=== PATIENT | male | born 1965 | race African-American/Black ===

== ENCOUNTER 2016-07-09 12:41 | Emergency (ER) | payer BC, OTHER ==
[~2016-07-09] VITALS: Ht 182.9 cm; Wt 95.3 kg
[2016-07-09 12:52] VITALS: BP 132/85
[2016-07-09] MEDS ORDERED: KETOROLAC TROMETH 60MG/2ML VIAL IM ONE (16:00)
== END 2016-07-09 16:52 | disposition home or self-care (01) ==
LOC: ER 12:46
DX: M25.551 Pain in right hip (principal); G89.29 Other chronic pain; M16.11 Unilateral primary osteoarthritis, right hip; X50.1XXA Overexertion from prolonged static or awkward postures, initial encounter; Y93.B9 Activity, other involving muscle strengthening exercises; Y99.8 Other external cause status; Y92.89 Other specified places as the place of occurrence of the external cause
CPT/HCPCS: 73502; 96372; 99284; J1885